=== PATIENT | male | born 1975 | race Caucasian/White ===

== ENCOUNTER 2020-12-28 20:02 | Emergency (ER) | payer OTHER, SELFPAY ==
[2020-12-28] VITALS (9 sets, daily range): BP systolic 140–161; BP diastolic 79–98; PULSE 53–74; RESP 14–18; TEMP 36.4–36.7; O2SAT 96–100; BMI 29.1
--- NOTE | ~2020-12-28 | XR_ITS ---
EXAMINATION: XR SHOULDER, RIGHT CLINICAL INFORMATION: Status post multilevel injury. Dislocation. COMPARISON: None TECHNIQUE: Two views of the right shoulder. FINDINGS: There is subcoracoid anterior dislocation of humeral head in relation to the glenoid. No fracture seen. The soft tissues are normal. XR/XR shoulder RT min 2V IMPRESSION: Anterior subcoracoid dislocation right shoulder. No visible acute fracture seen.
--- NOTE | ~2020-12-28 | XR_ITS ---
EXAMINATION: XR SHOULDER, RIGHT CLINICAL INFORMATION: Post reduction COMPARISON: X-rays of the right shoulder earlier same day 12/28/2020 TECHNIQUE: Single AP view of the right shoulder FINDINGS: The humeral head appears reduced on the single AP projection. Remaining bones joints and soft tissues unremarkable XR/XR shoulder RT 1V IMPRESSION: Limited AP projection consistent with reduction of previously noted dislocation
--- NOTE | 2020-12-28 20:10 | PC.NURSE ---
While triaging, pt short with RN and stating I should have said my pain was more to make this faster. I understand you have your procedures but I just need someone to put this back into place .CHANEL Valles consulted for treatment and came to triage immediately after triage for evaluation. After 2 unsuccessful attempts at manual reduction while in triage the patient asked the provider to stop due to increased discomfort. wallpaper scraper called and pt wheeled back to bed 5. RN consulted CHANEL Lou and pt to have xray completed
--- NOTE | 2020-12-28 20:26 | PC.NURSE ---
pt to room, chg into gown and awaiting md's eval. X-ray in room for [facility] x-ray. IV placed, labs drawn to lab. will continue to monitor pt.
[2020-12-28 20:27] LABS: MANUAL DIFF FLAG NO
[2020-12-28 20:29] LABS: Basophils Absolute Auto 0.1 X10*3/uL (0.0-0.2); Basophils Percent Auto 0.5 % (0-2); Eosinophils Absolute Auto 0.1 X10*3/uL (0.0-0.4); Eosinophils Percent Auto 1.3 % (0-4); Hematocrit 48.2 % (42-52); Imm Gran Abs Auto 0.04 X10*3/uL (0.00-0.03); Imm Gran Pct Auto 0.4 % (0.0-0.4); Lymphocytes Absolute Auto 3.4 X10*3/uL (1.2-4.9); Lymphocytes Percent Auto 35.1 % (20-40); Mean Corpuscular HGB Conc 33.2 g/dl (31.0-36.0); Mean Corpuscular Hemoglobin 30.1 pg (27.0-33.0); Mean Corpuscular Volume 90.8 fL (80-98); Mean Platelet Volume 9.7 fL (9.4-12.4); Monocytes Absolute Auto 0.6 X10*3/uL (0.1-1.2); Monocytes Percent Auto 5.9 % (2-11); Neutrophils Absolute Auto 5.4 X10*3/uL (2.0-8.3); Neutrophils Percent Auto 56.8 % (45-73); Platelet Count 308 X10*3/uL (160-400); Red Blood Count 5.31 X10*6/uL (4.60-5.80); White Blood Count 9.6 X10*3/uL (4.8-10.8)
[2020-12-28] MEDS: oxyCODONE HCl Immed Release 5 MG TABLET PO (20:33)
[2020-12-28] MEDS: Morphine Sulfate 4 MG/ML CARTRIDGE IVPUSH (20:34)
--- NOTE | 2020-12-28 20:38 | PC.NURSE ---
pt medicated for pain.
[2020-12-28 20:52] LABS: Alanine Aminotransferase 38 U/L (0-40); Albumin Level 4.6 g/dL (3.5-5.0); Alkaline Phosphatase 54 U/L (39-117); Anion Gap 15 (12-20); Aspartate Amino Transferase 17 U/L (5-37); Bilirubin Total 1.3 mg/dL (0.0-1.0); Blood Urea Nitrogen 21 mg/dL (9-16); Calcium 10.2 mg/dL (8.4-10.2); Carbon Dioxide 28 mmol/L (22-29); Chloride 106 mmol/L (96-108); Creatinine Clr Calc Pharmacy 98.2; Estimated Glomerular Filt Rate > 60; Glucose Random 133 mg/dL (60-115); Potassium 3.7 mmol/L (3.3-5.1); Sodium 145 mmol/L (135-145); Total Protein 7.4 g/dL (6.5-8.0)
--- NOTE | 2020-12-28 21:57 | ED.EXTPRO ---
HPI - Extremity Problem General Chief complaint: Extremity Injury, Upper Stated complaint: shoulder inj Time Seen by Provider: 12/28/20 20:29 Source: patient Mode of arrival: ambulatory History of Present Illness HPI Narrative: 45-year-old male without significant past medical history comes in with anterior dislocation. Will do conscious sedation for reduction after trying manual methods without success. Dislocation happened approximately 2-1/2 hours ago. Related Data Allergies Allergy/AdvReac Type Severity Reaction Status Date / Time No Known Allergies Allergy Verified 12/28/20 20:06 Review of Systems Review of Systems: Pertinent positives and negatives as stated in HPI 10 point review of systems otherwise negative. PMFSH Past Medical History Source: nursing notes reviewed Social History Social History Advance Directives: No Advance Directives Information Provided: No Physical Exam Vital Signs: Vital Signs: Last Vital Signs Temp 98.1 F 12/28/20 22:50 Pulse 74 12/28/20 22:50 Resp 16 12/28/20 22:50 BP 140/95 H 12/28/20 22:50 Pulse Ox 97 12/28/20 22:46 Oxygen Flow Rate 98 12/28/20 22:50 Body Mass Index 29.1 VITAL SIGNS: Reviewed. GENERAL: Well developed, well nourished, in no acute distress. HEAD: Normocephalic/atraumatic EYES: PERRLA, EOMI OROPHARYNX: no oral lesions noted, posterior pharynx clear NECK: Supple, no adenopathy LUNGS: Normal breath sounds. SpO2<96> CARDIOVASCULAR: Regular rate and rhythm without noted murmurs, no JVD or lower extremity edema. ABDOMEN: Soft, non-tender, non-distended with bowel sounds. RIGHT SHOULDER: Deformity noted, palpable pulses, capillary refill less than 3 seconds, sensation intact SKIN: Inspection of the skin reveals no rashes NEUROLOGIC: Alert and oriented x 4. Course Course Course Narrative: 45-year-old male with history and clinical presentation consistent with right shoulder dislocation, patient underwent conscious sedation for shoulder reduction without complication. After recovery from conscious sedation patient will be discharged home in a sling with prescribed follow-up. On re-evaluation patient is recovered from his conscious sedation and is stable for discharge. Procedures Orthopedic Joint Reduction Joint #1: Time Out Performed: Yes Side: right Joint Reduction Location: shoulder Analgesia: procedural sedation Amount of anesthesic used (mL): 70 Shoulder Technique Used (if applicable): traction/counter-traction and external rotation Post-reduction neuro exam: intact Post-reduction vascular: intact Post Reduction X-Ray Obtained: Yes Post Reduction X-Ray Results: reduced Splint Applied: Yes Patient Tolerated Procedure: well and no complications Discharge Plan Discharge Clinical Impression: Anterior dislocation of right shoulder Patient Disposition: Home, Self-Care Instructions: Shoulder Dislocation (ED), Shoulder Manipulation (DC), Closed Reduction (ED), Shoulder Immobilizer (ED) Additional Instructions: 1. You will need to keep this sling in place for approximately 2 weeks. 2. You should follow-up with the primary care provider in the next 2-3 days for re-evaluation further outpatient management. 3. Recommend continuing with [id number] Tylenol/ibuprofen as needed for residual pain control. Return to the ER for acute worsening of symptoms, specifically numbness/tingling or weakness in your right hand. Referrals: Buck Palencia MD [Primary Care Provider] - 2 days (Re-evaluation after reduction of anterior dislocation of right shoulder.) Stand Alone Forms: Work/School Release
--- NOTE | 2020-12-28 22:03 | PC.NURSE ---
ACTUAL WT 105.7 KG
--- NOTE | 2020-12-28 22:51 | PC.NURSE ---
RIGHT SHOULDER REDUCED AND POST PROCEDURE DONE AT THIS TIME. VS WNL. PT AWAKE, SPEAKING IN FULL COMPLETE SENTENCES. RESPIRATIONS EASY, N/L. SKIN W/D.
== END 2020-12-29 00:28 | disposition home or self-care (01) ==
PROVIDERS: Emergency Provider Student in an Organized Health Care Education/Training Program; PCP Pediatrics
DX: S43.084A Other dislocation of right shoulder joint, initial encounter (principal); X50.3XXA Overexertion from repetitive movements, initial encounter; Y93.68 Activity, volleyball (beach) (court); Y92.9 Unspecified place or not applicable; Y99.9 Unspecified external cause status
CPT/HCPCS: 23655; 36415; 73020; 73030; 80053; 85025; 96374; 96375; 99152; 99283; 99285; J2270; J2405